=== PATIENT | male | born 1995 | race Caucasian/White ===

== ENCOUNTER 2018-07-09 18:58 | Emergency (ER) | payer MEDICAID ==
--- NOTE | 2018-07-09 19:20 | EDM.PDOC ---
ED HPI GENERAL MEDICAL PROBLEM - General Chief Complaint: Upper Extremity Injury/Pain Stated Complaint: L ELBOW PAIN BACK PAIN Time Seen by Provider: 07/09/18 19:00 Source of Information: Reports: Patient History Limitations: Reports: No Limitations - History of Present Illness INITIAL COMMENTS - FREE TEXT/NARRATIVE: 22 y.o.m came to the ed after he fell at work. Pt complained about a minor rash , abrasion at his left forearm. He has FROM ol all extremities and is UTD with his TD immunizations. No other acute medical issues. BP 127/76 RR 18 Pulse ox 100% Temp 36.9 Pulse 109 Onset Date: 07/09/18 Onset Time: 18:00 Duration: Minutes:, Constant, Improving Location: Reports: Upper Extremity, Left Quality: Reports: Ache Severity: Mild Improves with: Reports: Rest Worsens with: Reports: Movement Context: Reports: Trauma Associated Symptoms: Reports: No Other Symptoms L elbow Pain Score (Numeric/FACES): 5 - Related Data Allergies Allergy/AdvReac Type Severity Reaction Status Date / Time No Known Allergies Allergy Verified 07/09/18 19:07 Home Meds: Home Meds Albuterol [Ventolin HFA] 2 puff .XX Q4H PRN 06/07/18 [History] Cyclobenzaprine [Flexeril] 10 mg PO TID PRN #14 tab 06/07/18 [Rx] Dicyclomine [Bentyl] 20 mg PO QID PRN 06/07/18 [History] Estradiol 6 mg PO BEDTIME 06/07/18 [History] Spironolactone [Aldactone] 200 mg PO BEDTIME 06/07/18 [History] cloNIDine [Catapres] 0.1 mg BEDTIME PRN 06/07/18 [History] medroxyPROGESTERone [Provera] 5 mg PO BEDTIME 06/07/18 [History] Past Medical History Respiratory History: Reports: Asthma Gastrointestinal History: Reports: GERD, Irritable Bowel Syndrome, Other (See Below) Other Gastrointestinal History: hx pyloric stenosis Musculoskeletal History: Reports: Fracture Other Musculoskeletal History: hx R hand fx, possible cyst to R wrist Neurological History: Reports: Concussion, Migraines Psychiatric History: Reports: Anxiety, Depression, Suicide Attempt - Infectious Disease History Infectious Disease History: Reports: Chicken Pox - Past Surgical History GI Surgical History: Reports: None Musculoskeletal Surgical History: Reports: None Social & Family History - Family History Family Medical History: Noncontributory - Tobacco Use Smoking Status *Q: Former Smoker Years of Tobacco use: 1 Used Tobacco, but Quit: Yes Month/Year Tobacco Last Used: jul - Caffeine Use Caffeine Use: Reports: Coffee, Energy Drinks, Soda, Tea - Recreational Drug Use Recreational Drug Use: No Review of Systems - Review of Systems Review Of Systems: See Below Constitutional: Reports: No Symptoms Eyes: Reports: No Symptoms Ears: Reports: No Symptoms Nose: Reports: No Symptoms Mouth/Throat: Reports: No Symptoms Respiratory: Reports: No Symptoms Cardiovascular: Reports: No Symptoms GI/Abdominal: Reports: No Symptoms Genitourinary: Reports: No Symptoms Musculoskeletal: Reports: No Symptoms Skin: Reports: Rash (minor abrasion left forearm) Neurological: Reports: No Symptoms Psychiatric: Reports: No Symptoms ED EXAM, GENERAL - Physical Exam Exam: See Below Exam Limited By: No Limitations General Appearance: Alert, WD/WN, Mild Distress Eye Exam: Bilateral Eye: Normal Inspection Ears: Normal External Exam Ear Exam: Bilateral Ear: Auricle Normal Nose: Normal Inspection, Normal Mucosa, No Blood Throat/Mouth: Normal Inspection, Normal Lips, Normal Teeth, Normal Gums, Normal Oropharynx, Normal Voice, No Airway Compromise Head: Atraumatic, Normocephalic Neck: Normal Inspection, Supple, Non-Tender, Full Range of Motion Respiratory/Chest: No Respiratory Distress, Lungs Clear, Normal Breath Sounds, No Accessory Muscle Use, Chest Non-Tender Cardiovascular: Normal Peripheral Pulses, Regular Rate, Rhythm, No Gallop, No JVD, No Murmur, No Rub Peripheral Pulses: 1+: Brachial (R) GI/Abdominal: Normal Bowel Sounds, Soft, Non-Tender, No Organomegaly, No Distention, No Abnormal Bruit, No Mass, Pelvis Stable (Male) Exam: Deferred Rectal (Males) Exam: Deferred Back Exam: Normal Inspection, Full Range of Motion Extremities: Normal Inspection, Normal Range of Motion, Non-Tender, No Pedal Edema Neurological: Alert, Oriented, CN II-XII Intact, Normal Cognition, Normal Gait, No Motor/Sensory Deficits Psychiatric: Normal Affect Skin Exam: Warm, Dry, Rash (minimal abrasion left forarm, dorsal aspect) Lymphatic: No Adenopathy Course - Vital Signs Text/Narrative:: 22 y.o.m came to the ed after he fell at work. Pt complained about a minor rash , abrasion at his left forearm. He has FROM ol all extremities and is UTD with his TD immunizations. No other acute medical issues. BP 127/76 RR 18 Pulse ox 100% Temp 36.9 Pulse 109 PE: WNWD W M with a minor abrasion left forearm Impression: Fall at work, abrasion left elbow, minor Tx: Wound care done by nurse. Reexam: Improved Plan: D/C with instructions Last Recorded V/S: Last Vital Signs Temp 36.5 C 07/09/18 19:02 Pulse 103 H 07/09/18 19:02 Resp 18 07/09/18 19:02 BP 124/67 07/09/18 19:02 Pulse Ox 100 07/09/18 19:02 Departure - Departure Time of Disposition: 19:20 Disposition: Home, Self-Care 01 Condition: Good Clinical Impression: Abrasion of left elbow, initial encounter - Discharge Information Instructions: Contusion, [id number] Referrals: Emili Quinn NP [Primary Care Provider] - Forms: ED Department Discharge Additional Instructions: Please apply neosporine ointment to the affected areas twice daily, please follow up, please come back if your symptoms get worse acutely.
== END 2018-07-09 19:27 | disposition home or self-care (01) ==
LOC: FB.ED 18:58
DX: S50.312A Abrasion of left elbow, initial encounter (principal); W19.XXXA Unspecified fall, initial encounter; Y92.9 Unspecified place or not applicable; Z87.891 Personal history of nicotine dependence
CPT/HCPCS: 99283

== ENCOUNTER 2018-11-07 21:26 | Emergency (ER) | payer MEDICAID ==
--- NOTE | 2018-11-07 22:06 | EDM.PDOC ---
ED HPI GENERAL MEDICAL PROBLEM - General Stated Complaint: GROIN PAIN Time Seen by Provider: 11/07/18 21:40 Source of Information: Reports: Patient History Limitations: Reports: No Limitations - History of Present Illness INITIAL COMMENTS - FREE TEXT/NARRATIVE: 22-year-old transgender female who presents complaining of right groin pain. She is on testosterone blocking medication and on female hormone replacement medications and she reports the beginning about one week ago she developed pain in her right groin and inguinal area that seemed to come and go and seems to be worse when she was up and about and better with rest. 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 She has felt no swellings or lumps in that area. The pain is about a 7/10 when she is up and about and it is a sharp and stinging type pain. When she is sitting and resting it goes down to a 1/10. She has been able to urinate normally. She is having no urinary symptoms at all. She has noticed no hematuria. There is no pain with urination. There is no urgency with urination. She's had no fever. There is no redness in the area. She has no abdominal pain associated with this. She has no testicular pain. There is no back or flank pain. There are no other associated signs or symptoms. There are no other modifying factors. Onset: Other (One week) Duration: Getting Worse Location: Reports: Other (Right groin) Quality: Reports: Ache, Sharp Severity: Moderate Improves with: Reports: Rest Worsens with: Reports: Movement (And activity) Context: Reports: Other (No known injury. Has had in the past as a teenager.) Associated Symptoms: Reports: Other (Patient is having chronic nasal drainage and congestion that is also bothering her.) - Related Data Allergies Allergy/AdvReac Type Severity Reaction Status Date / Time No Known Allergies Allergy Verified 07/09/18 19:07 Home Meds: Home Meds Albuterol [Ventolin HFA] 2 puff .XX Q4H PRN 06/07/18 [History] Cyclobenzaprine [Flexeril] 10 mg PO TID PRN #14 tab 06/07/18 [Rx] Dicyclomine [Bentyl] 20 mg PO QID PRN 06/07/18 [History] Estradiol 6 mg PO BEDTIME 06/07/18 [History] Spironolactone [Aldactone] 200 mg PO BEDTIME 06/07/18 [History] cloNIDine [Catapres] 0.1 mg BEDTIME PRN 06/07/18 [History] medroxyPROGESTERone [Provera] 5 mg PO BEDTIME 06/07/18 [History] Fluticasone Propionate [Flonase] 1 spray NS BID #1 bottle 11/07/18 [Rx] Ibuprofen [Ibu] 800 mg PO TID PRN #30 tablet 11/07/18 [Rx] Loratadine [Claritin] 10 mg PO DAILY #15 tab 11/07/18 [Rx] Past Medical History Respiratory History: Reports: Asthma Gastrointestinal History: Reports: GERD, Irritable Bowel Syndrome, Other (See Below) Other Gastrointestinal History: hx pyloric stenosis Genitourinary History: Reports: Other (See Below) (Patient is transgender and is on testosterone blocking medication and hormonal therapy) Musculoskeletal History: Reports: Fracture Other Musculoskeletal History: hx R hand fx, possible cyst to R wrist Neurological History: Reports: Concussion, Migraines Psychiatric History: Reports: Anxiety, Depression, Suicide Attempt - Infectious Disease History Infectious Disease History: Reports: Chicken Pox - Past Surgical History GI Surgical History: Reports: Other (See Below) (Pyloromyotomy) Musculoskeletal Surgical History: Reports: None Social & Family History - Tobacco Use Smoking Status *Q: Unknown Ever Smoked (Nonsmoker) - Caffeine Use Caffeine Use: Reports: Coffee, Energy Drinks, Soda, Tea - Alcohol Use Alcohol Use History: Yes Alcohol Use Frequency: Socially - Living Situation & Occupation Living situation: Reports: Occupation: Employed Social History Comment: Patient is transgender ED ROS GENERAL - Review of Systems Review Of Systems: See Below Constitutional: Reports: No Symptoms HEENT: Reports: Sinus Problem, Other (Nasal congestion with chronic feeling of needing to clear her nose) Respiratory: Reports: No Symptoms Cardiovascular: Reports: No Symptoms Endocrine: Reports: No Symptoms GI/Abdominal: Reports: No Symptoms : Reports: No Symptoms. Denies: Dysuria, Flank Pain, Frequency, Hematuria, Urgency Musculoskeletal: Reports: Other (Right groin and inguinal pain) Skin: Reports: No Symptoms Neurological: Reports: No Symptoms Hematologic/Lymphatic: Reports: No Symptoms Immunologic: Reports: No Symptoms ED EXAM, GENERAL - Physical Exam Exam: See Below Exam Limited By: No Limitations General Appearance: Alert, WD/WN, Mild Distress Eye Exam: Bilateral Eye: EOMI, Normal Inspection, PERRL Ears: Normal External Exam, Hearing Grossly Normal Nose: Clear Rhinorrhea, Other (Nasal mucosal edema; no polyps or masses) Throat/Mouth: Normal Inspection, Normal Lips, Normal Voice, No Airway Compromise Head: Atraumatic, Normocephalic Neck: Normal Inspection, Supple, Non-Tender, Full Range of Motion Respiratory/Chest: No Respiratory Distress, Lungs Clear, Normal Breath Sounds, No Accessory Muscle Use, Chest Non-Tender Cardiovascular: Normal Peripheral Pulses, Regular Rate, Rhythm, No JVD Peripheral Pulses: 2+: Radial (L), Radial (R) GI/Abdominal: Normal Bowel Sounds, Soft, Non-Tender, No Organomegaly, No Mass (Male) Exam: No Hernia, Normal Inspection, Circumcised, Other (Both testes descended; she does have some tenderness along her inguinal canal. No redness) Back Exam: Normal Inspection Extremities: Normal Inspection, Normal Range of Motion, Non-Tender, No Pedal Edema Neurological: Alert, Oriented, CN II-XII Intact, Normal Cognition, No Motor/ Sensory Deficits Skin Exam: Warm, Dry, Intact, Normal Color, No Rash Lymphatic: No Adenopathy Course - Vital Signs Last Recorded V/S: Last Vital Signs Temp 36.8 C 11/07/18 22:05 Pulse 93 11/07/18 22:05 Resp 16 11/07/18 22:05 BP 107/69 11/07/18 22:05 Pulse Ox 100 11/07/18 22:05 - Re-Assessments/Exams Free Text/Narrative Re-Assessment/Exam: 11/07/18 22:09: I did not appreciate a hernia on her exam. I did discuss the possibilities with her. It is possible that she has a hernia that I am not appreciating but she does not have any evidence of an incarcerated hernia. This could also be a ligamentous strain of the area. I have recommended that she follow-up with her primary doctor for surgical referral and evaluation. I have also given her prescriptions of medications to try to treat her allergy type symptoms. Departure - Departure Time of Disposition: 22:15 Disposition: Home, Self-Care 01 Condition: Good Clinical Impression: Right inguinal pain, Allergic rhinitis - Discharge Information Prescriptions: Fluticasone Propionate [Flonase] 1 spray NS BID #1 bottle Ibuprofen [Ibu] 800 mg PO TID PRN #30 tablet PRN Reason: Pain Loratadine [Claritin] 10 mg PO DAILY #15 tab Referrals: Emili Quinn NP [Primary Care Provider] - Forms: ED Department Discharge Additional Instructions: I did not appreciate a hernia on your exam. It is possible that you have a hernia that is present but is not incarcerated. You should follow-up with your primary doctor for surgical referral and evaluation. In regard to your nasal drainage and congestion feeling, you appear to have allergic rhinitis and I have given you prescriptions or medications for this (Flonase nasal spray, Claritin). I have also given you a prescription for ibuprofen for your pain. Back to the emergency department for masses or swelling in your right inguinal area, redness in the area, abdominal pain, trouble urinating, unrelenting vomiting or any other concerning sign or symptom.
== END 2018-11-07 22:25 | disposition home or self-care (01) ==
LOC: FB.ED 21:26
DX: R10.31 Right lower quadrant pain (principal); J30.9 Allergic rhinitis, unspecified
CPT/HCPCS: 99282

== ENCOUNTER 2019-05-16 01:34 | Emergency (ER) | payer MEDICAID ==
--- NOTE | 2019-05-16 03:28 | EDM.PDOC ---
ED HPI GENERAL MEDICAL PROBLEM - General Chief Complaint: General Stated Complaint: generalized weakness Time Seen by Provider: 05/16/19 03:24 Source of Information: Reports: Patient History Limitations: Reports: No Limitations - History of Present Illness INITIAL COMMENTS - FREE TEXT/NARRATIVE: Patient is a transgender female, is on testosterone blocking medication and female hormone replacement. Presents with 2 weeks of fatigue, occasional palpitations, left sided abdominal pain and vomiting. Denies fever, cough, sore throat chest pain or shortness of breath. Duration: Week(s): (2) - Related Data Allergies Allergy/AdvReac Type Severity Reaction Status Date / Time grass pollen Allergy Other Verified 11/08/18 04:17 cats Allergy Other Uncoded 11/08/18 04:18 trees Allergy Other Uncoded 11/08/18 04:18 weeds Allergy Other Uncoded 11/08/18 04:18 Home Meds: Home Meds Albuterol [Ventolin HFA] 2 puff .XX Q4H PRN 06/07/18 [History] Cyclobenzaprine [Flexeril] 10 mg PO TID PRN #14 tab 06/07/18 [Rx] Dicyclomine [Bentyl] 20 mg PO QID PRN 06/07/18 [History] Estradiol 6 mg PO BEDTIME 06/07/18 [History] Spironolactone [Aldactone] 200 mg PO BEDTIME 06/07/18 [History] cloNIDine [Catapres] 0.1 mg BEDTIME PRN 06/07/18 [History] medroxyPROGESTERone [Provera] 5 mg PO BEDTIME 06/07/18 [History] Fluticasone Propionate [Flonase] 1 spray NS BID #1 bottle 11/07/18 [Rx] Ibuprofen [Ibu] 800 mg PO TID PRN #30 tablet 11/07/18 [Rx] Loratadine [Claritin] 10 mg PO DAILY #15 tab 11/07/18 [Rx] Past Medical History Respiratory History: Reports: Asthma Gastrointestinal History: Reports: GERD, Irritable Bowel Syndrome, Other (See Below) Other Gastrointestinal History: hx pyloric stenosis Genitourinary History: Reports: Other (See Below) (Patient is transgender and is on testosterone blocking medication and hormonal therapy) Musculoskeletal History: Reports: Fracture Other Musculoskeletal History: hx R hand fx, possible cyst to R wrist Neurological History: Reports: Concussion, Migraines Psychiatric History: Reports: Anxiety, Depression, Suicide Attempt - Infectious Disease History Infectious Disease History: Reports: Chicken Pox - Past Surgical History GI Surgical History: Reports: Other (See Below) (Pyloromyotomy) Musculoskeletal Surgical History: Reports: None Social & Family History - Caffeine Use Caffeine Use: Reports: Coffee, Energy Drinks, Soda, Tea - Living Situation & Occupation Living situation: Reports: Occupation: Employed ED ROS GENERAL - Review of Systems Review Of Systems: Comprehensive ROS is negative, except as noted in HPI. ED EXAM, GENERAL - Physical Exam Exam: See Below Exam Limited By: No Limitations General Appearance: Alert, WD/WN, No Apparent Distress Eye Exam: Bilateral Eye: EOMI, PERRL Nose: Normal Inspection Throat/Mouth: Normal Inspection, Normal Oropharynx, No Airway Compromise Head: Atraumatic, Normocephalic Neck: Supple Respiratory/Chest: No Respiratory Distress, Lungs Clear, Normal Breath Sounds Cardiovascular: Regular Rate, Rhythm, No Murmur GI/Abdominal: Normal Bowel Sounds, Soft, No Distention, Tender (RUQ). No: Guarding, Rebound Back Exam: Full Range of Motion Extremities: Normal Inspection Neurological: Alert, Normal Cognition Psychiatric: Normal Affect, Normal Mood Skin Exam: Warm, Dry, Intact EKG INTERPRETATION EKG Date: 05/16/19 Time: 04:19 Rhythm: NSR Rate (Beats/Min): 66 [place]: Normal P-Wave: Present QRS: Normal ST-T: Normal QT: Normal Course - Vital Signs Text/Narrative:: T97.7, BP 124/67, HR 81, Sa02 100% RA - Orders/Labs/Meds Orders: Active Orders 24 hr Category Date Time Status EKG Documentation Completion [RC] ASDIRECTED Care 05/16/19 03:19 Active EKG 12 Lead [EK] Stat Ther 05/16/19 03:18 Ordered Labs: Laboratory Tests 05/16/19 05/16/19 05/16/19 Range/Units 03:30 03:30 03:30 WBC 11.1 (4.5-12.0) X10-3/uL RBC 4.29 (3.23-5.20) x10(6)uL Hgb 13.1 (11.5-15.5) g/dL Hct 39.2 (30.0-51.3) % MCV 91.5 (80-96) fL MCH 30.7 (27.7-33.6) pg MCHC 33.5 (32.2-35.4) g/dL RDW 11.1 L (11.5-15.5) % Plt Count 346 (125-369) X10(3)uL MPV 7.6 (7.4-10.4) fL Neut % (Auto) 70.6 (46-82) % Lymph % (Auto) 23.2 (13-37) % [place] % (Auto) 5.0 (4-12) % Eos % (Auto) 1 (1.0-5.0) % Baso % (Auto) 0 (0-2) % Neut # (Auto) 7.8 (1.6-8.3) # Lymph # (Auto) 2.6 (0.6-5.0) # [place] # (Auto) 0.6 (0.0-1.3) # Eos # (Auto) 0.1 (0.0-0.8) # Baso # (Auto) 0.0 (0.0-0.2) # Sodium 138 (135-145) mmol/L Potassium 3.5 (3.5-5.3) mmol/L Chloride 103 (100-110) mmol/L Carbon Dioxide 29 (21-32) mmol/L BUN 9 (7-18) mg/dL Creatinine 0.7 (0.55-1.02) mg/dL Est Cr Clr Drug Dosing TNP Estimated GFR (MDRD) > 60 (>60) BUN/Creatinine Ratio 12.9 (9-20) Glucose 96 (80-116) mg/dL Calcium 8.8 (8.6-10.2) mg/dL Total Bilirubin 0.2 (0.1-1.3) mg/dL AST 12 (5-25) IU/L ALT 17 (12-36) U/L Alkaline Phosphatase 51 L (56-112) IU/L Total Protein 6.9 (6.0-8.0) g/dL Albumin 3.9 (3.5-5.2) g/dL Globulin 3.0 g/dL Albumin/Globulin Ratio 1.3 Amylase 42 (25-115) U/L TSH, Ultra Sensitive (0.36-3.74) IU/mL Urine Color Yellow (YELLOW) Urine Appearance Clear (CLEAR) Urine pH 5.0 (5.0-6.5) Ur Specific [place] 1.020 (1.010-1.025) Urine Protein Negative (NEGATIVE) mg/dL Urine Glucose (UA) Normal (NORMAL) mg/dL Urine Ketones Negative (NEGATIVE) mg/dL Urine Occult Blood Negative (NEGATIVE) Urine Nitrite Negative (NEGATIVE) Urine Bilirubin Negative (NEGATIVE) Urine Urobilinogen Normal (NEGATIVE) mg/dL Ur Leukocyte Esterase Negative (NEGATIVE) Urine RBC 0-5 (0-5) Urine WBC 0-5 (0-5) Ur Squamous Epith Cells Few H (NS,R,O) Urine Bacteria Few H (NS) Urine Mucus Few H (NS) 05/16/19 Range/Units 03:30 WBC (4.5-12.0) X10-3/uL RBC (3.23-5.20) x10(6)uL Hgb (11.5-15.5) g/dL Hct (30.0-51.3) % MCV (80-96) fL MCH (27.7-33.6) pg MCHC (32.2-35.4) g/dL RDW (11.5-15.5) % Plt Count (125-369) X10(3)uL MPV (7.4-10.4) fL Neut % (Auto) (46-82) % Lymph % (Auto) (13-37) % [place] % (Auto) (4-12) % Eos % (Auto) (1.0-5.0) % Baso % (Auto) (0-2) % Neut # (Auto) (1.6-8.3) # Lymph # (Auto) (0.6-5.0) # [place] # (Auto) (0.0-1.3) # Eos # (Auto) (0.0-0.8) # Baso # (Auto) (0.0-0.2) # Sodium (135-145) mmol/L Potassium (3.5-5.3) mmol/L Chloride (100-110) mmol/L Carbon Dioxide (21-32) mmol/L BUN (7-18) mg/dL Creatinine (0.55-1.02) mg/dL Est Cr Clr Drug Dosing Estimated GFR (MDRD) (>60) BUN/Creatinine Ratio (9-20) Glucose (80-116) mg/dL Calcium (8.6-10.2) mg/dL Total Bilirubin (0.1-1.3) mg/dL AST (5-25) IU/L ALT (12-36) U/L Alkaline Phosphatase (56-112) IU/L Total Protein (6.0-8.0) g/dL Albumin (3.5-5.2) g/dL Globulin g/dL Albumin/Globulin Ratio Amylase (25-115) U/L TSH, Ultra Sensitive 3.51 (0.36-3.74) IU/mL Urine Color (YELLOW) Urine Appearance (CLEAR) Urine pH (5.0-6.5) Ur Specific [place] (1.010-1.025) Urine Protein (NEGATIVE) mg/dL Urine Glucose (UA) (NORMAL) mg/dL Urine Ketones (NEGATIVE) mg/dL Urine Occult Blood (NEGATIVE) Urine Nitrite (NEGATIVE) Urine Bilirubin (NEGATIVE) Urine Urobilinogen (NEGATIVE) mg/dL Ur Leukocyte Esterase (NEGATIVE) Urine RBC (0-5) Urine WBC (0-5) Ur Squamous Epith Cells (NS,R,O) Urine Bacteria (NS) Urine Mucus (NS) Departure - Departure Time of Disposition: 04:35 Disposition: Home, Self-Care 01 Condition: Good Clinical Impression: Generalized weakness - Discharge Information *PRESCRIPTION DRUG MONITORING PROGRAM REVIEWED*: No *COPY OF PRESCRIPTION DRUG MONITORING REPORT IN PATIENT WHIT: Not Applicable Instructions: Fatigue Referrals: Emili Quinn NP [Primary Care Provider] - 3 Days Forms: ED Department Discharge Additional Instructions: Follow up with your primary physician in 2-3 days. Return to the ER if symptoms worsen. - My Orders Last 24 Hours: My Active Orders 05/16/19 03:18 EKG 12 Lead [EK] Stat 05/16/19 03:19 EKG Documentation Completion [RC] ASDIRECTED - Assessment/Plan Last 24 Hours: My Active Orders 05/16/19 03:18 EKG 12 Lead [EK] Stat 05/16/19 03:19 EKG Documentation Completion [RC] ASDIRECTED
== END 2019-05-16 05:05 | disposition home or self-care (01) ==
LOC: EDSEX 01:34 → FB.ED 01:34
DX: R53.1 Weakness (principal); J45.909 Unspecified asthma, uncomplicated; Z91.048 Other nonmedicinal substance allergy status; Z91.09 Other allergy status, other than to drugs and biological substances; Z79.899 Other long term (current) drug therapy
CPT/HCPCS: 36415; 80053; 81001; 82150; 84443; 85025; 93005; 99284-25

== ENCOUNTER 2019-07-01 09:56 | Emergency (ER) | payer MEDICAID ==
[2019-07-01] MEDS ORDERED: predniSONE 20 MG Tab PO ONE (09:57)
--- NOTE | 2019-07-01 10:20 | EDM.PDOC ---
ED HPI GENERAL MEDICAL PROBLEM - General Chief Complaint: General Stated Complaint: NOT FEELING GOOD Time Seen by Provider: 07/01/19 10:17 Source of Information: Reports: Patient History Limitations: Reports: No Limitations - History of Present Illness INITIAL COMMENTS - FREE TEXT/NARRATIVE: 23 yo complaining of cough,sore throat and vomiting x 3-4 days. Had fever yesterday. No diarrhea. Feels generally weak.He/she vapes - Related Data Allergies Allergy/AdvReac Type Severity Reaction Status Date / Time Estrogens Allergy Other Verified 07/01/19 10:13 grass pollen Allergy Other Verified 05/23/19 21:54 cats Allergy Other Uncoded 05/23/19 21:55 trees Allergy Other Uncoded 05/23/19 21:55 weeds Allergy Other Uncoded 05/23/19 21:55 Home Meds: Home Meds Spironolactone [Aldactone] 200 mg PO BEDTIME 06/07/18 [History] cloNIDine [Catapres] 0.1 mg BEDTIME PRN 06/07/18 [History] medroxyPROGESTERone [Provera] 5 mg PO BEDTIME 06/07/18 [History] ARIPiprazole [Abilify] 5 mg PO DAILY 05/23/19 [History] Estradiol Valerate 10 mg IM Q14D 05/23/19 [History] Past Medical History Respiratory History: Reports: Asthma Gastrointestinal History: Reports: GERD, Irritable Bowel Syndrome, Other (See Below) Other Gastrointestinal History: hx pyloric stenosis Genitourinary History: Reports: Other (See Below) (Patient is transgender and is on testosterone blocking medication and hormonal therapy) Musculoskeletal History: Reports: Fracture Other Musculoskeletal History: hx R hand fx, possible cyst to R wrist Neurological History: Reports: Concussion, Migraines Psychiatric History: Reports: Anxiety, Depression, Suicide Attempt - Infectious Disease History Infectious Disease History: Reports: Chicken Pox - Past Surgical History GI Surgical History: Reports: Other (See Below) (Pyloromyotomy) Musculoskeletal Surgical History: Reports: None Social & Family History - Caffeine Use Caffeine Use: Reports: Coffee, Energy Drinks, Soda, Tea - Living Situation & Occupation Living situation: Reports: Occupation: Employed ED ROS GENERAL - Review of Systems Review Of Systems: Comprehensive ROS is negative, except as noted in HPI. ED EXAM, GENERAL - Physical Exam Exam: See Below Exam Limited By: No Limitations General Appearance: Alert, WD/WN Ears: Normal External Exam Nose: Normal Inspection Head: Atraumatic Respiratory/Chest: Rhonchi Cardiovascular: Normal Peripheral Pulses Course - Vital Signs Last Recorded V/S: Last Vital Signs Temp 98.3 F 07/01/19 09:56 Pulse 98 07/01/19 09:56 Resp 14 07/01/19 09:56 BP 106/65 07/01/19 09:56 Pulse Ox 96 07/01/19 09:56 Departure - Departure Time of Disposition: 10:18 Disposition: Home, Self-Care 01 Condition: Good Clinical Impression: Generalized weakness - Discharge Information Referrals: Emili Quinn NP [Primary Care Provider] - Sepsis Event Note - Evaluation Sepsis Screening Result: No Definite Risk - Focused Exam Vital Signs: Vital Signs Temp Pulse Resp BP Pulse Ox 07/01/19 09:56 98.3 F 98 14 106/65 96 Date Exam was Performed: 07/01/19 Time Exam was Performed: 10:17 - Problem List & Annotations (1) Acute bronchitis SNOMED Code(s): 55330815 Code(s): J20.9 - ACUTE BRONCHITIS, UNSPECIFIED Status: Acute Current Visit: Yes Qualifiers: Bronchitis organism: unspecified organism Qualified Code(s): J20.9 - Acute bronchitis, unspecified (2) Engages in nicotine containing substance vaping SNOMED Code(s): 688394648 Code(s): Z72.0 - TOBACCO USE Status: Acute Current Visit: Yes - Problem List Review Problem List Initiated/Reviewed/Updated: Yes - Assessment/Plan Plan: Prednisone 20 mg bid. Discussed vaping and counselled against it.
== END 2019-07-01 10:26 | disposition home or self-care (01) ==
LOC: FB.ED 09:56
DX: R53.1 Weakness (principal); R05 Cough; F17.290 Nicotine dependence, other tobacco product, uncomplicated; Z88.8 Allergy status to other drugs, medicaments and biological substances; Z79.899 Other long term (current) drug therapy
CPT/HCPCS: 99283; A9270

== ENCOUNTER 2020-12-20 01:50 | Emergency (ER) | payer OTHER, MEDICAID ==
[2020-12-20] MEDS ORDERED: traMADol 50 MG Tab PO ONE (01:51)
--- NOTE | 2020-12-20 02:07 | EDM.PDOC ---
ED HPI GENERAL MEDICAL PROBLEM - General Stated Complaint: PINCH IN BACK Time Seen by Provider: 12/20/20 01:57 Source of Information: Reports: Patient History Limitations: Reports: No Limitations - History of Present Illness INITIAL COMMENTS - FREE TEXT/NARRATIVE: 24-year-old transgender female who reports 2 days ago awoke with pain in her left upper back medial to her shoulder blade. She reports it was a sharp but pressure type pain that initially was mild and it seemed to go away but has come back and has been intermittent over the past 2 days. Today, she noted that the pain seemed to worsen and it has progressively worsened through the day and now is a 9/10 level of pain that is worse with deep breath. It seems to be better with palpation and massage over the area. She states she took Flexeril earlier and it did not relieve her pain and really did not seem to even help with her pain. She has had no hemoptysis. There has been no nausea or vomiting. She reports that the pain does seem to shoot down her left arm times but it does not seem to be worse with movement of her left arm. There is been no known injury. She has been fairly sedentary and currently is in school and not working. Her no other associated signs or symptoms. There are no other modifying factors. Onset: Other (Yesterday) Duration: Getting Worse Location: Reports: Back, Upper Extremity, Left Quality: Reports: Pressure, Sharp Improves with: Reports: Rest Worsens with: Reports: Breathing, Movement Context: Reports: Other (As above.) Associated Symptoms: Reports: No Other Symptoms (Except as above.) Treatments POLE SHAVER: Reports: Other Medication(s) (Flexeril) - Related Data Allergies Allergy/AdvReac Type Severity Reaction Status Date / Time grass pollen Allergy breathing Verified 12/20/20 02:39 difficulty cats Allergy breathing Uncoded 12/20/20 02:39 difficulty dust Allergy breathing Uncoded 12/20/20 02:39 difficulty trees Allergy breathing Uncoded 12/20/20 02:39 difficulty weeds Allergy breathing Uncoded 12/20/20 02:39 difficulty Home Meds: Home Meds Spironolactone [Aldactone] 200 mg PO BEDTIME 06/07/18 [History] cloNIDine [Catapres] 0.1 mg BEDTIME PRN 06/07/18 [History] medroxyPROGESTERone [Provera] 5 mg PO BEDTIME 06/07/18 [History] Estradiol Valerate 10 mg IM Q14D 05/23/19 [History] methylPREDNISolone [Medrol Dose Pack] 4 mg PO ASDIRECTED #1 dospk 12/20/20 [Rx] traMADol [Ultram] 50 mg PO Q6H PRN #10 tab 12/20/20 [Rx] Past Medical History Respiratory History: Reports: Asthma Gastrointestinal History: Reports: GERD, Irritable Bowel Syndrome, Other (See Below) Other Gastrointestinal History: hx pyloric stenosis Genitourinary History: Reports: Other (See Below) (Patient is transgender and is on testosterone blocking medication and hormonal therapy) Musculoskeletal History: Reports: Fracture Other Musculoskeletal History: hx R hand fx, possible cyst to R wrist Neurological History: Reports: Concussion, Migraines Psychiatric History: Reports: Anxiety, Depression, Suicide Attempt Other Psychiatric History: personality disorder - Infectious Disease History Infectious Disease History: Reports: Chicken Pox - Past Surgical History GI Surgical History: Reports: Other (See Below) (Pyloromyotomy) Musculoskeletal Surgical History: Reports: Other (See Below) (Ganglion cyst removal from right wrist.) Social & Family History - Tobacco Use Tobacco Use Status *Q: Unknown Ever Used Tobacco (Nonsmoker.) - Caffeine Use Caffeine Use: Reports: Coffee, Energy Drinks, Soda, Tea - Alcohol Use Alcohol Use History: Yes Alcohol Use Frequency: Rarely - Living Situation & Occupation Living situation: Reports: Occupation: Student ED ROS GENERAL - Review of Systems Review Of Systems: See Below Constitutional: Denies: Fever, Chills HEENT: Reports: Other (No trouble swallowing.). Denies: Throat Pain Respiratory: Reports: Pleuritic Chest Pain. Denies: Shortness of Breath, Cough, Hemoptysis Cardiovascular: Denies: Chest Pain, Dyspnea on Exertion GI/Abdominal: Denies: Abdominal Pain, Nausea, Vomiting : Denies: Frequency, Hematuria Musculoskeletal: Reports: Back Pain. Denies: Neck Pain Skin: Denies: Diaphoresis, Rash Neurological: Denies: Confusion, Dizziness, Headache Hematologic/Lymphatic: Denies: Easy Bleeding, Easy Bruising ED EXAM, GENERAL - Physical Exam Exam: See Below Exam Limited By: No Limitations General Appearance: Alert, WD/WN, Moderate Distress (Appears in pain. No respiratory distress.) Eye Exam: Bilateral Eye: EOMI, Normal Inspection, PERRL Ears: Normal External Exam, Hearing Grossly Normal Ear Exam: Bilateral Ear: Auricle Normal Nose: Normal Inspection, Normal Mucosa, No Blood Throat/Mouth: Normal Inspection, Normal Lips, Normal Oropharynx, Normal Voice, No Airway Compromise Head: Atraumatic, Normocephalic Respiratory/Chest: No Respiratory Distress, Lungs Clear, Normal Breath Sounds, No Accessory Muscle Use, Chest Non-Tender Cardiovascular: Normal Peripheral Pulses, No Murmur, Tachycardia Peripheral Pulses: 2+: Radial (L), Radial (R) GI/Abdominal: Normal Bowel Sounds, Soft, Non-Tender, No Mass Back Exam: Full Range of Motion, Other (Some discomfort just medial to the left scapula area.) Extremities: Normal Inspection, Normal Range of Motion, Non-Tender, No Pedal Edema, Normal Capillary Refill Neurological: Alert, Oriented, CN II-XII Intact, Normal Cognition, No Motor/Sensory Deficits Psychiatric: Normal Affect Skin Exam: Warm, Dry, Intact, Normal Color, No Rash #1 Interpretation EKG Date: 12/20/20 Time: 02:13 Rhythm: Other (Sinus tachycardia) Rate (Beats/Min): 114 Shepherd: Normal P-Wave: Present QRS: Normal ST-T: Normal QT: Normal Comparison: No Change (No change from EKG performed on 05/16/2019 other than today there is a sinus tachycardia which was not present on that EKG.) Course - Vital Signs Last Recorded V/S: Last Vital Signs Temp 37.7 C 12/20/20 02:20 Pulse 116 H 12/20/20 02:20 Resp 16 12/20/20 02:20 BP 127/80 12/20/20 02:20 Pulse Ox 98 12/20/20 02:20 - Orders/Labs/Meds Orders: Active Orders 24 hr Category Date Time Status EKG Documentation Completion [RC] ASDIRECTED Care 12/20/20 02:08 Active Chest 2V [CR] Stat Exams 12/20/20 02:08 Taken EKG 12 Lead [EK] Routine Ther 12/20/20 02:08 Ordered Labs: Laboratory Tests 12/20/20 12/20/20 Range/Units 02:25 02:25 D-Dimer, Quantitative 0.26 (0.0-0.59) mg/LFEU Troponin I < 4.0 L (4.0-60.3) pg/mL Meds: Medications Discontinued Medications Generic Name Dose Route Start Last Admin Trade Name Jarrodq PRN Reason Stop Dose Admin Ketorolac Tromethamine 30 mg 12/20/20 02:09 12/20/20 02:44 Ketorolac 30 Mg/Ml Sdv IM 12/20/20 02:10 30 mg ONETIME ONE Administration - Radiology Interpretation Free Text/Narrative:: Chest x-ray PA and lateral showed no acute disease per my read. - Re-Assessments/Exams Free Text/Narrative Re-Assessment/Exam: 12/20/20 03:30: The d-dimer was normal. The troponin was normal. The EKG showed a sinus tachycardia but otherwise was normal and there is no change from previous EKG. The chest x-ray showed no pneumothorax. The patient got partial relief of her pain from the Toradol. She has remained hemodynamically and respiratory stable. This appears to be a musculoskeletal type problem and could represent a disc problem in her neck. I will prescribe the patient a Medrol Dosepak and also tramadol. I will give her a take-home pack of the tramadol. She could also try the Flexeril again as well. She can also continue to take ibuprofen and Tylenol as needed for pain. She reports that she has had some relief with similar problems in the past from a chiropractor and she can certainly try them tomorrow as well. Precautions and reasons for return to the emergency department were discussed with the patient while she was in the emergency department and were detailed in her discharge instructions. Departure - Departure Time of Disposition: 03:35 Disposition: Home, Self-Care 01 Condition: Good Clinical Impression: Pain of left scapula Acute thoracic back pain Qualifiers: Back pain laterality: left Qualified Code(s): M54.6 - Pain in thoracic spine - Discharge Information Prescriptions: methylPREDNISolone [Medrol Dose Pack] 4 mg PO ASDIRECTED #1 dospk traMADol [Ultram] 50 mg PO Q6H PRN #10 tab PRN Reason: Moderate to severe pain Instructions: Pain Medicine Instructions, [id number] Referrals: Emili Quinn NP [Primary Care Provider] - Additional Instructions: Your EKG showed no evidence of a heart attack or a significant problem with your heart. Your heart enzyme test was normal. The blood clot screening test was negative. Your chest x-ray showed no lung collapse or any other significant lung problem. You appear to have a myofascial strain/pain in your upper back that could be due to a disc problem in your neck. You can take ibuprofen and Tylenol as needed for pain. Medication as prescribed for more severe pain (tramadol 50 mg). I have also prescribed you a Medrol Dosepak that you can take to help decrease inflammation and this hopefully will help with your pain. Follow-up with your primary provider. Back to the emergency department for breathing, coughing up blood, high fever or any other concerning signs or symptoms. Sepsis Event Note (ED) - Focused Exam Vital Signs: Vital Signs Temp Pulse Resp BP Pulse Ox 12/20/20 02:20 37.7 C 116 H 16 127/80 98 - My Orders Last 24 Hours: My Active Orders 12/20/20 02:08 EKG Documentation Completion [RC] ASDIRECTED Chest 2V [CR] Stat EKG 12 Lead [EK] Routine - Assessment/Plan Last 24 Hours: My Active Orders 12/20/20 02:08 EKG Documentation Completion [RC] ASDIRECTED Chest 2V [CR] Stat EKG 12 Lead [EK] Routine
[2020-12-20] MEDS ORDERED: Ketorolac 30 MG/ML SDV IM ONE (02:09)
--- NOTE | 2020-12-20 10:34 | CR ---
INDICATION: Left upper back pain - pain with inspiration. History of asthma, no smoking. CHEST TWO VIEWS: Two PA views and a lateral view of the chest were obtained 12/20/20 - no comparisons. The heart and mediastinum and bony thorax are unremarkable. An active infiltrate or effusion was not identified. IMPRESSION: No active disease. MTDD
== END 2020-12-20 03:55 | disposition home or self-care (01) ==
LOC: FB.ED 01:50
DX: M54.6 Pain in thoracic spine (principal); M25.512 Pain in left shoulder; J45.909 Unspecified asthma, uncomplicated; Z91.048 Other nonmedicinal substance allergy status; Z79.899 Other long term (current) drug therapy
CPT/HCPCS: 36415; 71046; 84484; 85379; 93005; 93010; 96372; 99284; 99284-25; A9270-GY; J1885

== ENCOUNTER 2020-12-25 17:30 | Emergency (ER) | payer MEDICAID, OTHER ==
[2020-12-25] MEDS ORDERED: Sodium Chloride 0.9% 10 ML Syringe FLUSH PRN (17:55)
[2020-12-25] MEDS ORDERED: HYDROmorphone 2 MG/ML SDV IVPUSH ONE (17:56)
[2020-12-25] MEDS ORDERED: Sodium Chloride 0.9% 1,000 ML IV ONE (17:56)
[2020-12-25] MEDS ORDERED: Pantoprazole 40 MG Vial IVPUSH ONE (17:56)
[2020-12-25] MEDS ORDERED: Ondansetron 4 MG/2 ML SDV IVPUSH ONE (17:56)
--- NOTE | 2020-12-25 18:03 | EDM.PDOC ---
ED HPI GENERAL MEDICAL PROBLEM - General Chief Complaint: Abdominal Pain Stated Complaint: ABDOMINAL CRAMPS Time Seen by Provider: 12/25/20 17:58 Source of Information: Reports: Patient History Limitations: Reports: No Limitations - History of Present Illness INITIAL COMMENTS - FREE TEXT/NARRATIVE: Patient is a transgender female who presents with generalized abdominal pain x 1 hour. [place] as though she needed to have a BM just prior, attempted but was not able to defecate. Pain became worse after eating. Endorses mild nausea. Had similar complaints in the past due to constipation. Had small BM yesterday, can't remember when last normal BM was. Was prescribed Medrol dosepak for back pain on 12/20/20. Prior surgical history includes pyloric stenosis repair. Denies h/o PUD. Duration: Hour(s): (1) Location: Reports: Abdomen Quality: Reports: Ache Severity: Moderate abdominal Pain Score (Numeric/FACES): 10 - Related Data Allergies Allergy/AdvReac Type Severity Reaction Status Date / Time grass pollen Allergy breathing Verified 12/20/20 02:39 difficulty cats Allergy breathing Uncoded 12/20/20 02:39 difficulty dust Allergy breathing Uncoded 12/20/20 02:39 difficulty trees Allergy breathing Uncoded 12/20/20 02:39 difficulty weeds Allergy breathing Uncoded 12/20/20 02:39 difficulty Home Meds: Home Meds Spironolactone [Aldactone] 200 mg PO BEDTIME 06/07/18 [History] cloNIDine [Catapres] 0.1 mg BEDTIME PRN 06/07/18 [History] medroxyPROGESTERone [Provera] 5 mg PO BEDTIME 06/07/18 [History] Estradiol Valerate 10 mg IM Q14D 05/23/19 [History] methylPREDNISolone [Medrol Dose Pack] 4 mg PO ASDIRECTED #1 dospk 12/20/20 [Rx] traMADol [Ultram] 50 mg PO Q6H PRN #10 tab 12/20/20 [Rx] Past Medical History Respiratory History: Reports: Asthma Gastrointestinal History: Reports: GERD, Irritable Bowel Syndrome, Other (See Below) Other Gastrointestinal History: History of pyloric stenosis. Genitourinary History: Reports: Other (See Below) Other Genitourinary History: Takes hormones. Musculoskeletal History: Reports: Fracture Other Musculoskeletal History: History of right hand fracture. Neurological History: Reports: Concussion, Migraines Psychiatric History: Reports: Anxiety, Depression, Suicide Attempt Other Psychiatric History: Personality disorder. - Infectious Disease History Infectious Disease History: Reports: Chicken Pox - Past Surgical History GI Surgical History: Reports: Other (See Below) Musculoskeletal Surgical History: Reports: Other (See Below) Other Musculoskeletal Surgeries/Procedures:: Surgery to right wrist for ganglion cyst. Social & Family History - Family History Family Medical History: No Pertinent Family History - Tobacco Use Tobacco Use Status *Q: Current Every Day Tobacco User Years of Tobacco use: 9 Packs/Tins Daily: 1 - Caffeine Use Caffeine Use: Reports: Coffee - Alcohol Use Alcohol Use History: Yes Alcohol Use in Last Twelve Months: Yes Alcohol Use Frequency: Socially - Recreational Drug Use Recreational Drug Use: No - Living Situation & Occupation Living situation: Reports: Occupation: Student ED ROS GENERAL - Review of Systems Review Of Systems: Comprehensive ROS is negative, except as noted in HPI. ED EXAM, GI/ABD - Physical Exam Exam: See Below Exam Limited By: No Limitations General Appearance: Alert, WD/WN, No Apparent Distress Throat/Mouth: Normal Voice, No Airway Compromise Head: Atraumatic, Normocephalic Neck: Full Range of Motion Respiratory/Chest: No Respiratory Distress GI/Abdominal Exam: Normal Bowel Sounds, Soft, No Distention, Tender (epigastric). No: Guarding Extremities: Normal Range of Motion Neurological: Alert, Oriented, Normal Cognition Psychiatric: Normal Affect, Normal Mood Skin Exam: Warm, Dry, Intact Course - Vital Signs Last Recorded V/S: Last Vital Signs Temp 36.8 C 12/25/20 17:40 Pulse 80 12/25/20 17:40 Resp 18 12/25/20 17:40 BP 144/92 H 12/25/20 17:40 Pulse Ox 98 12/25/20 17:40 - Orders/Labs/Meds Orders: Active Orders 24 hr Category Date Time Status Abdomen Pelvis w Cont [CT] Stat Exams 12/25/20 18:03 Taken UA W/MICROSCOPIC [URIN] Stat Lab 12/25/20 18:44 Received Sodium Chloride 0.9% [Normal Saline] 1,000 ml Med 12/25/20 17:56 Active IV .BOLUS Sodium Chloride 0.9% [Saline Flush] Med 12/25/20 17:55 Active 10 ml FLUSH ASDIRECTED PRN Saline Lock Insert [OM.PC] Routine Oth 12/25/20 17:55 Ordered Medication Orders Sodium Chloride (Normal Saline) 1,000 mls @ 999 mls/hr IV .BOLUS ONE Stop: 12/25/20 18:56 Sodium Chloride (Sodium Chloride 0.9% 10 Ml Syringe) 10 ml FLUSH ASDIRECTED PRN PRN Reason: Keep Vein Open Labs: Laboratory Tests 12/25/20 12/25/20 12/25/20 Range/Units 18:08 18:08 18:08 WBC 19.6 H (3.0-10.3) x10-3/uL RBC 4.86 (3.60-5.20) x10(6)uL Hgb 14.7 (11.4-15.5) g/dL Hct 43.9 (34.2-48.2) % MCV 90.2 (76.7-100.5) fL MCH 30.3 (23.9-33.9) pg MCHC 33.6 (31.9-34.8) g/dL RDW 12.1 L (12.3-16.5) % Plt Count 390 (151-488) x10(3)uL MPV 7.5 (7.1-12.4) fL Add Manual Diff Yes Neutrophils % (Manual) 83 H (46-82) % Lymphocytes % (Manual) 10 L (13-37) % Monocytes % (Manual) 7 (4-12) % Sodium 139 (135-145) mmol/L Potassium 3.9 (3.5-5.3) mmol/L Chloride 100 (100-110) mmol/L Carbon Dioxide 28 (21-32) mmol/L BUN 16 (7-18) mg/dL Creatinine 0.9 (0.55-1.02) mg/dL Est Cr Clr Drug Dosing 101.53 mL/min Estimated GFR (MDRD) > 60 (>60) BUN/Creatinine Ratio 17.8 (9-20) Glucose 138 H (80-116) mg/dL Calcium 8.9 (8.6-10.2) mg/dL Total Bilirubin 0.4 (0.1-1.3) mg/dL AST 14 D (5-25) IU/L ALT 85 H D (12-36) U/L Alkaline Phosphatase 65 (56-112) IU/L Total Protein 7.6 (6.0-8.0) g/dL Albumin 3.8 (3.5-5.2) g/dL Globulin 3.8 g/dL Albumin/Globulin Ratio 1.0 Lipase 25 L (73-393) U/L Meds: Medications Generic Name Dose Route Start Last Admin Trade Name Freq PRN Reason Stop Dose Admin Sodium Chloride 1,000 mls @ 999 mls/hr 12/25/20 17:56 Normal Saline IV 12/25/20 18:56 .BOLUS ONE Sodium Chloride 10 ml 12/25/20 17:55 Sodium Chloride 0.9% 10 Ml Syringe FLUSH ASDIRECTED PRN Keep Vein Open Discontinued Medications Generic Name Dose Route Start Last Admin Trade Name Freq PRN Reason Stop Dose Admin Hydromorphone HCl 0.5 mg 12/25/20 17:56 Hydromorphone 2 Mg/Ml Sdv IVPUSH 12/25/20 17:57 ONETIME ONE Iopamidol 100 ml 12/25/20 18:16 12/25/20 18:33 Iopamidol 755 Mg/Ml 100 Ml Bottle IV 12/25/20 18:17 100 ml . DIRECTED ONE Administration Ondansetron HCl 4 mg 12/25/20 17:56 Ondansetron 4 Mg/2 Ml Sdv IVPUSH 12/25/20 17:57 ONETIME ONE Pantoprazole Sodium 40 mg 12/25/20 17:56 Pantoprazole 40 Mg Vial IVPUSH 12/25/20 17:57 ONETIME ONE - Re-Assessments/Exams Free Text/Narrative Re-Assessment/Exam: 12/25/20 19:00 Patient care transferred to Dr. Watt. Departure - Departure Time of Disposition: 19:00 Disposition: Still A Patient 30 Clinical Impression: Abdominal pain Qualifiers: Abdominal location: generalized Qualified Code(s): R10.84 - Generalized abdominal pain - Discharge Information Referrals: Emili Quinn NP [Primary Care Provider] - Forms: ED Department Discharge Sepsis Event Note (ED) - Evaluation Sepsis Screening Result: No Definite Risk - Focused Exam Vital Signs: Vital Signs Temp Pulse Resp BP Pulse Ox 12/25/20 17:40 36.8 C 80 18 144/92 H 98 - My Orders Last 24 Hours: My Active Orders 12/25/20 17:55 Sodium Chloride 0.9% [Saline Flush] 10 ml FLUSH ASDIRECTED PRN Saline Lock Insert [OM.PC] Routine 12/25/20 17:56 Sodium Chloride 0.9% [Normal Saline] 1,000 ml IV .BOLUS 12/25/20 18:03 Abdomen Pelvis w Cont [CT] Stat 12/25/20 18:44 UA W/MICROSCOPIC [URIN] Stat - Assessment/Plan Last 24 Hours: My Active Orders 12/25/20 17:55 Sodium Chloride 0.9% [Saline Flush] 10 ml FLUSH ASDIRECTED PRN Saline Lock Insert [OM.PC] Routine 12/25/20 17:56 Sodium Chloride 0.9% [Normal Saline] 1,000 ml IV .BOLUS 12/25/20 18:03 Abdomen Pelvis w Cont [CT] Stat 12/25/20 18:44 UA W/MICROSCOPIC [URIN] Stat
[2020-12-25] MEDS ORDERED: Iopamidol 755 Mg/ML 100 ML Bottle IV ONE (18:16)
== END 2020-12-25 20:20 | disposition home or self-care (01) ==
LOC: FB.ED 17:30
DX: R10.84 Generalized abdominal pain (principal); Z72.0 Tobacco use; Z91.048 Other nonmedicinal substance allergy status
CPT/HCPCS: 36415; 74177; 80053; 81001; 83690; 85025; 96374; 96375; 99283; 99284-25; C9113; J1170; J2405; J7030; Q9967

== ENCOUNTER 2022-08-01 16:22 | Emergency (ER) | payer OTHER, MEDICAID | END 2022-08-01 17:52 | disposition home or self-care (01) | LOC: FB.ED 16:22 | DX: S50.02XA Contusion of left elbow, initial encounter (principal); K21.9 Gastro-esophageal reflux disease without esophagitis; Z91.048 Other nonmedicinal substance allergy status; Z91.09 Other allergy status, other than to drugs and biological substances; W00.9XXA Unspecified fall due to ice and snow, initial encounter | CPT/HCPCS: 73080-LT; 99283 ==

== ENCOUNTER 2022-12-28 03:59 | Emergency (ER) | payer MEDICAID ==
[2022-12-28] MEDS ORDERED: predniSONE 20 MG Tab PO ONE (04:00)
[2022-12-28] MEDS ORDERED: hydrOXYzine HCl 50 MG/ML SDV IM ONE (04:36)
[2022-12-28] MEDS ORDERED: Triamcinolone Acetonide 40 MG/ML 1 ML SDV IM ONE (04:36)
== END 2022-12-28 04:52 | disposition home or self-care (01) ==
LOC: FB.ED 03:59
DX: L29.9 Pruritus, unspecified (principal); L50.9 Urticaria, unspecified; J45.909 Unspecified asthma, uncomplicated; Z91.048 Other nonmedicinal substance allergy status
CPT/HCPCS: 96372; 99282; J3301; J3410; J7512